=== PATIENT | female | born 1970 | race Caucasian/White ===

== ENCOUNTER → 2018-10-14 13:27 | Outpatient (CLI) | payer MEDICAID | END | disposition home or self-care (01) | LOC: D.CT 13:27 | PROVIDERS: ATTEND Internal Medicine Gastroenterology | DX: R10.9 Unspecified abdominal pain (principal); R63.4 Abnormal weight loss ==

== ENCOUNTER → 2018-11-13 11:30 | Outpatient (CLI) | payer MEDICAID | END | disposition home or self-care (01) | LOC: D.NM 11:30 | PROVIDERS: ATTEND Surgery | DX: K31.84 Gastroparesis (principal) ==

== ENCOUNTER → 2019-08-02 10:04 | Outpatient (CLI) | payer MEDICAID ==
[2018-12-28 08:23] VITALS: BMI 20.6
[~2019-08-02 10:04] MED LIST: DILAUDID4 MG PO; ESTRACE2 MG PO; HYDROCODON-ACE1 EAC7 PO; KLONOPIN1 MG PO; MIRALAX17 GM PO; NEXIUM20 MG PO; PROVERA 5 MG TAB5 MG PO; ULTRAM50 MG PO; ZOFRAN ODT4 MG/UDTAB PO
== END | disposition home or self-care (01) ==
LOC: D.RAD 10:04
PROVIDERS: ATTEND Surgery
DX: R11.2 Nausea with vomiting, unspecified (principal)

== ENCOUNTER → 2019-08-26 10:48 | Outpatient (CLI) | payer MEDICAID ==
[2018-12-28 08:23] VITALS: BMI 20.6
== END | disposition home or self-care (01) ==
LOC: D.NM 10:48
PROVIDERS: ATTEND Surgery
DX: R11.2 Nausea with vomiting, unspecified (principal)

== ENCOUNTER 2019-09-01 05:19 | Day surgery (SDC) | payer BC ==
[~2019-09-01] VITALS: Ht 162.6 cm; Wt 57.3 kg
[2019-09-01 05:39] LABS: HEMATOCRIT 40.1 % (36.0-48.0); HEMOGLOBIN 13.2 g/dL (12-16); MCH 31.4 pg (26.0-34.0); MCHC 32.9 g/dL (31.0-37.0); MCV 95.2 fL (80.0-100.0); RBC 4.21 10x6/uL (4.00-5.40); RDW 12.4 % (11.5-14.5); WBC 6.7 10x3/uL (4.8-10.8)
[2019-09-01 06:21] VITALS: Ht 162.6 cm; Wt 57.3 kg
[2019-09-01] MEDS ORDERED: ZOFRAN4 MG PO (08:23)
--- NOTE | 2019-09-01 08:54 | NUR ---
0822-REC'D FROM GI LAB. AWAKE AND ALERT WITHOUT COMPLAINTS OF PAIN. VSS. IV PATENT TO LEFT HAND AT O. REVIEWED DISCHARGE CRITERIA.VERBALIZED UNDERSTANDING. CL IN EASY REACH. SPOUSE AT BEDSIDE.
--- NOTE | 2019-09-01 08:55 | NUR ---
0850-AMBULATED TO RESTROOM WITH SLOW STEADY GAIT. ABLE TO VOID WITHOUT COMPLICATIONS.
--- NOTE | 2019-09-01 08:56 | NUR ---
0852-FULL LIQUID TRAY TO ROOM. VSS. NO PAIN.CL IN EASY REACH. SPOUSE AT BEDSIDE.
--- NOTE | 2019-09-01 09:15 | NUR ---
0910-TOLERATED TRAY. VSS. DENIES PAIN. REMOVED IV WITH CATH INTACT,DISPOSED INTO SHARPS. COVERED SITE WITH GUAZE AND MEDIPORE TAPE.
--- NOTE | 2019-09-01 11:14 | NUR ---
0925 ALL DC CRITERIA MET. DC INSTRUCTIONS GIVEN. TAKEN OUT VIA W/C AND ASSISTED TO CAR. ADVISED TO CALL OR COME BACK IF ANY PROBLEMS.
== END 2019-09-01 09:25 | disposition home or self-care (01) ==
LOC: D.OPS 05:19
PROVIDERS: Anesthesiology; ATTEND Surgery
DX: R11.2 Nausea with vomiting, unspecified (principal); K31.84 Gastroparesis; K21.9 Gastro-esophageal reflux disease without esophagitis

== ENCOUNTER 2019-11-17 06:30 | Day surgery (SDC) | payer MEDICAID ==
[~2019-11-17] VITALS: Ht 162.6 cm; Wt 55.9 kg
[~2019-11-17 06:30] MED LIST changes: +ZOFRAN4 MG PO
[2019-11-17 06:52] LABS: BASOPHILS 0.3 % (0-2); EOSINOPHILS 3.2 % (0-7); HEMATOCRIT 41.1 % (36.0-48.0); HEMOGLOBIN 13.2 g/dL (12-16); IMMATURE GRANULOCYTES 0.1 % (0-5); LYMPHOCYTES 37.3 % (15-50); MCH 31.1 pg (26.0-34.0); MCHC 32.1 g/dL (31.0-37.0); MCV 96.7 fL (80.0-100.0); MEAN PLATELET VOLUME 10.9 fL (7.4-10.4); MONOCYTES 6.8 % (2-11); NEUTROPHILS 52.3 % (40-80); PLATELET COUNT 266 10x3/uL (130-400); RBC 4.25 10x6/uL (4.00-5.40); RDW 12.8 % (11.5-14.5); WBC 6.8 10x3/uL (4.8-10.8)
[2019-11-17 07:13] VITALS: Ht 162.6 cm; Wt 55.9 kg
--- NOTE | 2019-11-17 11:17 | NUR ---
DISCHARGE INSTRUCTIONS PROVIDED, IV DC'D WITH TIP INTACT.
== END 2019-11-17 11:18 | disposition home or self-care (01) ==
LOC: D.OPS 06:30
PROVIDERS: Anesthesiology; ATTEND Surgery
DX: K31.84 Gastroparesis (principal); R11.2 Nausea with vomiting, unspecified; K21.9 Gastro-esophageal reflux disease without esophagitis

== ENCOUNTER → 2020-03-24 11:11 | Outpatient (CLI) | payer MEDICAID ==
[2019-11-17 07:13] VITALS: BMI 21.1
== END | disposition home or self-care (01) ==
LOC: D.NM 11:11
PROVIDERS: ATTEND Surgery
DX: R11.2 Nausea with vomiting, unspecified (principal)

== ENCOUNTER 2020-11-02 05:55 | Day surgery (SDC) | payer BC ==
[2020-10-30 15:46] LABS: BASOPHILS 0.3 % (0-2); EOSINOPHILS 0.5 % (0-7); HEMATOCRIT 41.1 % (36.0-48.0); HEMOGLOBIN 13.8 g/dL (12-16); IMMATURE GRANULOCYTES 0.1 % (0-5); LYMPHOCYTE ABS# 2.16 10x3/uL (1.18-3.74); LYMPHOCYTES 28.3 % (15-50); MCH 31.6 pg (26.0-34.0); MCHC 33.6 g/dL (31.0-37.0); MCV 94.1 fL (80.0-100.0); MEAN PLATELET VOLUME 11.6 fL (7.4-10.4); MONOCYTES 6.2 % (2-11); NEUTROPHIL ABS# 4.93 10x3/uL (1.56-6.13); NEUTROPHILS 64.6 % (40-80); PLATELET COUNT 261 10x3/uL (130-400); RBC 4.37 10x6/uL (4.00-5.40); RDW 12.4 % (11.5-14.5); WBC 7.6 10x3/uL (4.8-10.8)
[~2020-11-02] VITALS: Ht 162.6 cm; Wt 56.7 kg
[2020-11-02 06:41] VITALS: BP 110/58; Ht 162.6 cm; Wt 56.7 kg
--- NOTE | 2020-11-02 11:10 | NUR ---
PT ASSISTED TO BATHROOM AND WAS ABLE TO VOID. BACK TO BED, IV DC'D WITH CATH TIP INTACT. DISCHARGE INSTRUCTIONS REVIEWED WITH PT/SPOUSE AND ORIGINAL RX OF PERCOCET AND MOTRIN GIVEN IN PACKET. BOTH PT AND SPOUSE VOICED UNDERSTANDING. PT GETTING DRESSED WITH ASSISTANCE FROM SPOUSE.
--- NOTE | 2020-11-02 11:20 | NUR ---
DISCHARGED VIA W/C, ACCOMPANIED BY MARCELO LOYOLA, TO [facility] WITH SPOUSE DRIVING. ALL BELONGINGS WITH PT/SPOUSE.
--- NOTE | 2020-11-04 18:52 | OP ---
PATIENT NAME: TALIA VALDIVIA MEDICAL RECORD: [id number] :70 LOCATION:D.OPS ADMISSION DATE: SURGEON: ARLENE GAMBINO DO DATE OF OPERATION: 11/02/2020 PREOPERATIVE DIAGNOSIS: Postmenopausal bleeding. POSTOPERATIVE DIAGNOSES: Postmenopausal bleeding, polyp. PRIMARY SURGEON: Arlene Gambino DO ANESTHESIA: LMA. PROCEDURE: Operative hysteroscopy and D&C. FINDINGS: Endocervical polyp, atrophic tissue. SPECIMENS: EMC, endocervical polyp ESTIMATED BLOOD LOSS: 15 mL. IV FLUIDS: 700 mL. URINE OUTPUT: 100 mL clear yellow urine via red rubber catheter. INFECTION PROPHYLAXIS: 1 gram Ancef. COMPLICATIONS: None. Prior to this procedure, all risks of surgery including bleeding, pain, infection, damage to surrounding structures, perforation, VTE, scar tissue formation were reviewed with the patient. The patient expressed understanding and signed consents in the office and preoperatively. All questions answered. DESCRIPTION OF PROCEDURE: The patient was taken to the OR where general anesthesia via LMA was administered and found to be adequate. She was prepped and draped in normal sterile fashion in dorsal lithotomy position with Julian stirrups. Speculum was placed in vagina. Anterior lip of the cervix was grasped with tenaculum. Uterus sounded to 7cm and cervix dilated to accommodate Aveta hysteroscope. Hysteroscope used to assess uterus. [place] visualized. Moderate amount endometrial tissue and endocervical polypoid tissue were noted as well. Resection tool placed into the hysteroscope and this tool was used to resect the endocervical polyp. Hysteroscope removed and then D&C performed. These specimens sent to pathology. The hysteroscope reintroduced and hemostasis adequate in uterus and endocervical canal. Scope & tenaculum removed. Deficit of 30 mL noted. Some bleeding at the tenaculum site, so silver nitrate was used for hemostasis. Hemostasis was adequate. All other instruments were removed. All lap, needle and sponge counts correct times 2. The patient was awakened and taken to recovery room in stable condition. TRANSINT:[id number] Voice Confirmation ID: [id number] DOCUMENT ID: [id number] OPERATIVE REPORT [id number] TALIA VALDIVIA ARLENE GAMBINO DO at 8127 CC: [id number] DICTATION DATE: 11/02/20 1302 [employer]BUTION MANAGER: 11/02/20 1428 [facility] [place] 11/02/20 [facility] [address] [place] [address]
== END 2020-11-02 11:20 | disposition home or self-care (01) ==
LOC: D.OPS 05:55
PROVIDERS: ATTEND Obstetrics & Gynecology
DX: N95.0 Postmenopausal bleeding (principal); N84.0 Polyp of corpus uteri